=== PATIENT | female | born 1950 | race Caucasian/White ===

== ENCOUNTER 2017-10-13 08:00 | Day surgery (SDC) | payer MEDICARE, OTHER, SELFPAY ==
[2017-10-13] VITALS (8 sets, daily range): BP systolic 115–140; BP diastolic 61–76; PULSE 63–86; RESP 16–19; TEMP 36.4–36.8; O2SAT 94–97; BMI 27.5
[2017-10-13 08:40] LABS: Bedside Glucose 107 mg/dL (70-110)
--- NOTE | 2017-10-13 10:00 | COLBX_PTH ---
PATIENT: SARAH ZAMBRANO LOC: EN U#:[id number] AGE/SX: 66/F ROOM: RE10/13/[address]: Dr. Beth De La Rosa MD : [id number] BED: DIS: 10/13/2017 SPEC #: [id number] RECD: 10/13/17 12:23 STATUS: SAMMY BIJAN #: [id number] KEN: 10/13/17 10:[address]: Beth De La Rosa DEPT: SURGICAL PATHOLOGY RECD BY: Warren Pena ENTERED: 10/13/17 13:02 SP TYPE: COLON BX OTHR DR: AMADOR Meyer Tissues: A - Cecum, NOS B - Cecum, NOS C - Ascending colon D - COLON BIOPSY E - Descending colon F - Sigmoid colon biopsy G - Rectum, NOS H - Sigmoid colon biopsy I - Rectum, NOS Procedures: Surgery Specimen Level IV HEADER OPERATION: Colonoscopy PRE-OP DIAGNOSIS: Diarrhea, blood in stool TISSUE SUBMITTED: A. Cecum biopsy, B. Cecum polyp biopsy, C. Ascending colon biopsy of polyp, D. Hepatic flexure polyp, E. Descending colon polyp biopsy, F. Sigmoid polyp, G. Rectal sigmoid polyp at 20, H. Distal sigmoid polyp biopsy, I. Rectal mass at 10, polyp MICROSCOPIC DIAGNOSIS A. Cecum, biopsy: Fragments of tubular adenoma. B. Cecal polyp, biopsy: Fragments of tubular adenoma. Fragments of hyperplastic polyp. C. Ascending colon polyp, biopsy: Fragments of tubular adenoma. D. Colonic polyp at hepatic flexure, biopsy: Fragments of tubulovillous adenoma. E. Descending colon polyp, biopsy: Tubular adenoma. F. Sigmoid colon polyp, biopsy: Tubular adenoma. G. Rectal sigmoid colon polyp at 20 cm, biopsy: Fragments of tubular adenoma. H. Distal sigmoid colon polyp, biopsy: Fragments of colonic mucosa with focal hyperplastic change. I. 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 AM:ciarra 10/14/17 MICROSCOPIC DESCRIPTION Slides are reviewed. GROSS DESCRIPTION A - Received in fixative is one container labeled with the patient's name and designated cecum biopsy. The specimen consists of multiple irregular fragments of light barrera soft tissue that in aggregate measure 0.6 x 0.3 x 0.1 cm. The specimen is totally submitted in one cassette. B - Received in fixative is one container labeled with the patient's name and designated cecum polyp biopsy. The specimen consists of two irregular fragments of light barrera soft tissue that in aggregate measure 0.6 x 0.3 x 0.1 cm. The specimen is totally submitted in one cassette. C - Received in fixative is one container labeled with the patient's name and designated ascending colon polyp biopsy. The specimen consists of multiple irregular fragments of light barrera soft tissue that in aggregate measure 1.5 x 0.5 x 0.1 cm. The specimen is totally submitted in one cassette. D - Received in fixative is one container labeled with the patient's name and designated hepatic flexure polyp. The specimen consists of multiple irregular fragments of light barrera soft tissue that in aggregate measure 1 x 1 x 0.1 cm. The specimen is totally submitted in one cassette. E - Received in fixative is one container labeled with the patient's name and designated descending colon polyp biopsy. The specimen consists of one irregular fragment of light barrera soft tissue that measures 0.3 x 0.3 x 0.1 cm. The specimen is totally submitted in one cassette. F - Received in fixative is one container labeled with the patient's name and designated sigmoid polyp. The specimen consists of one irregular fragment of light barrera soft tissue that measures 0.3 x 0.3 x 0.2 cm. The specimen is totally submitted in one cassette. G - Received in fixative is one container labeled with the patient's name and designated rectal sigmoid polyp. The specimen consists of multiple irregular fragments of light barrera soft tissue that in aggregate measure 0.4 x 0.3 x 0.1 cm. The specimen is totally submitted in one cassette. H - Received in fixative is one container labeled with the patient's name and designated distal sigmoid polyp biopsy. The specimen consists of multiple irregular fragments of light barrera soft tissue that in aggregate measure 0.4 x 0.1 x 0.1 cm. The specimen is totally submitted in one cassette. I - Received in fixative is one container labeled with the patient's name and designated rectal mass. The specimen consists of multiple irregular fragments of light barrera soft tissue that in aggregate measure 0.7 x 0.4 x 0.1 cm. The specimen is totally submitted in one cassette. / PRECIOUS:ciarra 10/13/17 TC:0 CPT: 53270 x9 ADDENDUM ADDENDUM ADDENDUM ADDENDUM ADDENDUM ADDENDUM ADDENDUM ADDENDUM ADDENDUM ADDENDUM ADDENDUM ADDENDUM ADDENDUM ADDENDUM ADDENDUM ADDENDUM ADDENDUM ADDENDUM ADDENDUM 10/27/2017 10:02 ADDENDUM 10/27/2017 10:02 ADDENDUM 10/27/2017 10:02 ADDENDUM 10/27/2017 10:02 ADDENDUM 10/27/2017 10:02 This addendum is added to incorporate an outside pathology consultation report. The case was examined at [facility] (#[id number]) and the following diagnosis was rendered. A. Colon, cecum, biopsy: Tubular adenoma. B. Colon, cecum, polypectomy: Tubular adenoma. -?Separate fragment of sessile serrated polyp, negative for dysplasia. C. Colon, ascending, polypectomy: Tubular adenoma. D. 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 E. Colon, descending, polypectomy: Tubular adenoma. F. Colon, sigmoid, polypectomy: Tubular adenoma. G. Colon, rectosigmoid at 20 cm, polypectomy: Tubular adenoma. H. Colon, distal sigmoid, polypectomy: Consistent with hyperplastic polyp. I. Rectum, mass at 10 cm, biopsy: Invasive, moderately differentiated adenocarcinoma. Please see complete above mentioned consultation report in EMR
[2017-10-13 11:14] LABS: Absolute Lymphocyte Count 1.07 X10^3/ul (0.83-4.51); Absolute Neutrophil Count 4.2 X10^3/uL (2.0-7.7); Basophil# 0.01 X10^3/uL; Basophil% 0.2 % (0-1); Eosinophil# 0.04 X10^3/uL; Eosinophils% 0.7 % (0-5); Hematocrit 40.2 % (37-47); Hemoglobin 13.5 g/dl (12.0-15.0); Lymphocyte # 1.07 X10^3/ul (4.0); Lymphocyte % 17.8 % (19-41); Mean Corp Hgb Conc 33.6 g/gl (32-36); Mean Corpuscular Hgb 29.3 pg (27.0-32.0); Mean Corpuscular Volume 87.4 fL (81-99); Mean Platelet Vol. 9.3 fl (6.2-12.0); Monocyte# 0.73 X10^3/uL; Monocyte% 12.1 % (0-10); Neutrophil # 4.17 X10^3/uL (2.7-7.7); Neutrophil % 69.2 % (47-70); POSITIVE COUNT NO; POSITIVE DIFFERENTIAL NO; POSITIVE MORPHOLOGY NO; Platelet Count 194 K/mm3 (150-450); RBC Distribution Width CV 13.6 % (11.6-14.6); RBC Distribution Width SD 43.4 fl (35.1-43.9)
[2017-10-13] MEDS: ALPRAZolam 0.5 MG Tablet PO (11:40)
[2017-10-13 11:50] LABS: ALB/GLOB Ratio 0.9 RATIO (0.9-2.4); AST(SGOT) 17 U/L (15-37); Alanine Aminotransfer ALT/SGPT 18 U/L (13-56); Albumin, Serum 3.1 g/dL (3.2-5.0); Alkaline Phosphatase 74 U/L (45-117); Anion Gap 7 (5-15); BUN 4 mg/dL (7-18); BUN/Creat Ratio 6.1 RATIO (10-20); Calcium,Total 8.4 mg/dL (8.5-10.1); Chloride 106 mmol/L (98-107); Creatinine, Serum 0.66 mg/dL (0.55-1.02); EST Glomerular Filtration Rate 95 mL/min (>60); Est Glom Filt Rate - Afr Amer 115 mL/min (>60); Estimated Creatinine Clearance 49.12 ml/min; Globulin 3.4 g/dL (2.2-4.2); Glucose 147 mg/dL (74-106); Potassium 2.7 mmol/L (3.5-5.1); Protein, Total 6.5 g/dL (6.4-8.2); Sodium Level 139 mmol/L (136-145)
--- NOTE | 2017-10-13 12:04 | EKG12_ITS ---
Test Reason : PREOP Blood Pressure : / mmHG Vent. Rate : 078 BPM Atrial Rate : 078 BPM P-R Int : 130 ms QRS Dur : 086 ms QT Int : 400 ms P-R-T Axes : 026 041 028 degrees QTc Int : 456 ms Normal sinus rhythm Nonspecific ST and T wave abnormality Abnormal ECG No previous ECGs available Confirmed by RANDY RODRIGUEZ, RONEY ([id number]), assistant editor DEVAUGHN FERRERA ([id number]) on 10/19/2017 2:13:14 PM Referred By: Beth De aL Rosa Confirmed By:RONEY PADILLA MD
--- NOTE | 2017-10-13 13:27 | OP.PCM_ITS ---
Report of Operation Date of Procedure: 10/13/17 Pre-Operative Diagnosis: Bright red blood per rectum positive family history of colon cancer - mom at age 59 Post-Operative Diagnosis: Multiple polyps: 3 at cecum, one in the ascending colon, one at hepatic flexure, 1 in descending colon, one sigmoid polyp & one rectosigmoid polyp, one at distal sigmoid colon at 20 cm, one at rectosigmoid junction also at 20 cm, fungating flat rectal mass located between 10 and 13 cm from the anus Surgery/Procedure Performed:: Colonoscopy with snare biopsy, cold forceps biopsy , injection of Alana ink Type of Anesthesia:: MAC Anesthesiologist: Jaime Orr Specimen's removed: 1. Cecal biopsy (2 small polyps), 2. Cecal polyp biopsy ( complete removal), 3. Ascending colon polyp, 4. Hepatic flexure polyp, 5. Descending colon polyp, 6. sigmoid polyp, 7. Rectosigmoid polyp, 8., Distal sigmoid pedunculated polyp biopsy (unable to be completely removed, marked with Alana) at 20 cm, 9. biopsy of large left fungating rectal mass located between 10 and 13 cm from the anus Estimated Blood Loss (mL): minimal Description of Procedure: Procedure: Colonoscopy After reviewing the risks benefits, the patient was deemed in satisfactory condition to undergo procedure. After obtaining informed consent, the scope was passed under direct visualization. Throughout the procedure, the patient's blood pressure pulse and position saturations were monitored continuously anesthesia. The colonoscope was introduced through the anus and advanced to the cecum, identified by the appendiceal orifice, IC valve and transillumination. The colonoscopy was performed without difficulty. The patient tolerated procedure well. Quality of bowel prep was good. Findings: Digital rectal exam does reveal circumferential external residual tissue no actively inflamed hemorrhoids currently. Cecum: 2 small sessile polyps were removed with cold forceps biopsies completely. There is also polyp along that trifold in the cecum which is unable to move completely as it was along the fold. A biopsy was taken of this area with cold forceps biopsy. Ascending: one sessile colon polyp along fold in the ascending colon was removed with cold forceps biopsies. Hepatic flexure: There was small lobulated polyp removed with snare polypectomy. Transverse colon: Appeared normal Descending colon: There is a small sessile descending colon polyp which was removed with the cold forceps biopsy Sigmoid colon: 2 small sessile sigmoid/rectosigmoid polyps removed with cold forceps biopsy. There is also larger pedunculated polyp that is unable to be completely removed as its position around a curve. To try to inject glucagon 1 mg IV however still unable to get the snare around it did take several biopsies of this polyp and also marked with Alana ink at about 20 cm from the anus. Rectum: Patient did have large fungating flat rectal mass between about 13 and 10 cm from the anus multiple biopsies were taken of this area. Anal verge: normal Impression: 1. Multiple colon polyps, cecal, ascending, hepatic flexure, descending, sigmoid and rectosigmoid. 2. Incomplete removal of cecal polyp at the trifold & incomplete removal of pedunculated sigmoid polyp at 20 cm marked with Alana ink 3. Fungating flat rectal mass. Multiple biopsies taken 4. The anal verge were normal on retroflexed view. Recommendations: -Await Biopsies -Will refer to colorectal surgeon as well as GI for repeat colonoscopy for removal of incomplete polypectomies -CBC with differential, CMP and CEA ordered, discussed with patient that will defer any further staging workup including CTs to the facility of the colorectal surgeon. - Complications none
[2017-10-13 15:30] LABS: Potassium 3.6 mmol/L (3.5-5.1)
[2017-10-14 09:00] LABS: Carcinoembryonic Antigen 1.9 ng/mL (0.0-4.7)
== END 2017-10-13 15:50 | disposition home or self-care (01) ==
LOC: EN 08:03 → AC 08:04
PROVIDERS: Family Provider Physician Assistant; PCP Physician Assistant; Visit Provider Surgery
PROC: 0DJD8ZZ Inspection of Lower Intestinal Tract, Via Natural or Artificial Opening Endoscopic (ICD-10-PCS; CPT 45378; principal; 2017-10-13 08:55)
DX: C20 Malignant neoplasm of rectum (principal); D12.0 Benign neoplasm of cecum; D12.2 Benign neoplasm of ascending colon; D12.3 Benign neoplasm of transverse colon; D12.4 Benign neoplasm of descending colon; D12.7 Benign neoplasm of rectosigmoid junction; Z80.0 Family history of malignant neoplasm of digestive organs; K21.9 Gastro-esophageal reflux disease without esophagitis; I10 Essential (primary) hypertension; F32.9 Major depressive disorder, single episode, unspecified; F41.9 Anxiety disorder, unspecified; Z79.899 Other long term (current) drug therapy
CPT/HCPCS: 45380; 45381; 45385; 80053; 82378; 82962; 84132; 85025; 88305; 93005; J7120; A4648; J1610

== ENCOUNTER → 2019-07-21 14:26 | Outpatient (CLI) | payer MEDICARE, SELFPAY ==
[2017-10-13 08:29] VITALS: BMI 27.5
[2019-07-21 15:55] LABS: CRP < 2.90 mg/L (0.0-3.0)
[2019-07-24 16:07] LABS: Endomysial Antibody IgA Negative (Negative)
[2019-07-24 17:44] LABS: Immunoglobulin A 420 mg/dL (87-352); t-Transglutaminase IgA <2 U/mL (0-3)
== END ==
PROVIDERS: PCP Physician Assistant; Referring Provider Internal Medicine Gastroenterology; Visit Provider Internal Medicine Gastroenterology
DX: R19.7 Diarrhea, unspecified (principal)
CPT/HCPCS: 36415; 82784; 83516; 86140; 86255